=== PATIENT | female | born 1970 | race African-American/Black ===

== ENCOUNTER → 2022-06-12 16:47 | Outpatient (CLI) | payer OTHER, SELFPAY ==
--- NOTE | ~2022-06-12 | MR_ITS ---
EXAMINATION: MR hip LT wo con DATE: 06/12/2022 17:40 INDICATION: Left hip pain TECHNIQUE: Magnetic resonance imaging (MRI) of the left hip was performed without intravenous contra st. Sequences included full-field axial PD-weighted FS FSE and T1-weighted FSE, coronal of the pelvis with PD-weighted FS FSE, T2-weighted FSE and T1-weighted FSE, small field of view of the left hip w ith axial PD-weighted FS FSE, sagittal PD-weighted FS FSE, coronal PD-weighted FS FSE and coronal T2 weighted FSE. Additional radial T1-weighted FGR oriented orthogonal to the acetabular rim were obtai andrei for evaluation of the labrum. COMPARISON: None FINDINGS: Bones/labrum/cartilage: Alignment is normal. T1 and T2 hyperintense hemangioma at L4. No fracture, avascular necrosis or path ologic marrow replacing process. There is cystic change at the left anterosuperior femoral head neck junction which can be seen in the setting of cam-type femoral acetabular impingement although there d oes not appear to be abnormally decreased femoral head neck offset. Mild osteoarthritis at the left h ip with partial thickness cartilage loss with nonuniform joint space narrowing at the posterior and p osterior superolateral aspect of the joint space. Tiny subarticular cystlike change at the 10:30 posi tion of the posterior superior rim of the left acetabulum. Labrum remains normal. Fluid: Symmetric physiologic amount of fluid within both hip joints. Mild increased fluid signal overlying t he left and right greater trochanters consistent with trochanteric bursitis. Soft tissues: Normal and symmetric muscle bulk and signal in the pelvis and visualized proximal thighs. Mild tendin opathy without discrete tear at the distal left gluteus minimus tendon. There is additional mild incr eased fluid signal along the deep margin of the tendon consistent with mild left gluteus minimus burs itis. The iliopsoas, remaining gluteal and proximal hamstring tendons are normal. The uterus is not i dentified and has likely been surgically resected. Limited evaluation of visceral organs of the pelvi s is otherwise unremarkable. No pathologically enlarged pelvic/inguinal lymphadenopathy. IMPRESSION: 1. Mild left hip osteoarthritis. 2. Mild bilateral trochanteric bursitis and mild left gluteus minimus bursitis. Mild tendinopathy wit hout discrete tear of the left gluteus minimus tendon. 3. Cystic change at the anterosuperior left femoral head neck junction which can be seen with femoral acetabular impingement however there is no loss of femoral head neck offset to more specifically sug gest cam-type femoral acetabular impingement. Reviewed, dictated and finalized at location A. IMPRESSION: 1. Mild left hip osteoarthritis. 2. Mild bilateral trochanteric bursitis and mild left gluteus minimus bursitis. Mild tendinopathy without discrete tear of the left gluteus minimus tendon. 3. Cystic change at the anterosuperior left femoral head neck junction which ca n be seen with femoral acetabular impingement however there is no loss of femor al head neck offset to more specifically suggest cam-type femoral acetabular im pingement.
== END ==
PROVIDERS: PCP Orthopaedic Surgery; Visit Provider Orthopaedic Surgery
DX: M16.12 Unilateral primary osteoarthritis, left hip (principal); M70.62 Trochanteric bursitis, left hip
CPT/HCPCS: 73721

== ENCOUNTER 2023-07-17 14:34 | Outpatient (CLI) | payer OTHER, SELFPAY ==
[2023-07-17 15:22] LABS: Anion Gap 7 mmol/L (8-16); Blood Urea Nitrogen 20 mg/dL (7-17); Calcium 9.2 mg/dL (8.4-10.2); Carbon Dioxide 28 mmol/L (22-30); Chloride 103 mmol/L (98-107); Estimated Glomerular Filt Rate > 60; Glucose 93 mg/dL (65-110); Potassium 3.2 mmol/L (3.4-5.0); Sodium 138 mmol/L (137-145)
== END 2023-07-17 14:35 | disposition home or self-care (01) ==
LOC: ANHSURGERY 14:40
PROVIDERS: Anesthesiology; PCP Internal Medicine; Visit Provider Surgery
DX: Z01.812 Encounter for preprocedural laboratory examination (principal); Z79.899 Other long term (current) drug therapy
CPT/HCPCS: 36415; 80048

== ENCOUNTER 2023-07-22 02:22 | Day surgery (SDC) | payer OTHER, SELFPAY ==
[2023-07-09 10:15] VITALS: BMI 29.3
--- NOTE | 2023-07-09 10:19 | PC.NURSE ---
Report to the Outpatient Waiting Room, entrance under the green pavilion located off [facility], at time 10:00 on date 07/22/23. Planned Procedure Time: 12:00. Time changes happen often and if your time is changed the preop area will call you the afternoon before. - You and your visitor will be asked to self-screen and do not enter if you have any COVID symptoms. - A mask is optional within the hospital at this time. Patients may have clear liquids (water, carbonated beverages, clear teas, apple juice) until 3 hours prior to surgery (9:00) with a maximum of 20 ounces. - No food from midnight until time of surgery Take the following medications with a SIP of water the morning of surgery: AMLODIPINE DO NOT STOP ANY OF YOUR OTHER PRESCRIPTION MEDICATIONS PRIOR TO SURGERY ?EXCEPT THE FOLLOWING Medications to discontinue per physician: N/A Date to take last dose: N/A Please no make-up, nail arabic, hairspray, perfume, deodorant, or body powder the day of surgery. No jewelry (including any body piercings) or valuables the day of surgery, leave them at home. Please take a shower or bath the night before, or the morning of, surgery with an antibacterial soap. Wear comfortable, loose fitting clothing. - Jewelry must be removed prior to entering the operating room. Rings and piercings that are not removed may be cut off. - The hospital will not accept responsibility for valuables. - Please leave all valuables, including medications, at home the day of surgery. If you are going home after surgery, a licensed superintendent drivers must drive you home. - NO public transportation without another adult if you receive anesthesia. - We recommend that an adult stay with you for 24 hours following discharge. - We also recommend that you do not drive, make important decision, drink alcoholic beverages, or take any drugs that were not prescribed by your health care provider for at least 24 hours after your discharge time. Follow any additional instructions given to you from your surgeon. If you or anyone in your household have experienced Covid symptoms in the past week, please notify your surgeon or the nurse liaison at the phone number below for possible testing. Telephone instructions given to PT - JULIAN COLLADO and asked if any additional questions and then verbalized understanding. Patient advised to call surgeon office or pre surgery nurse liaison [phone] if any additional questions.
[2023-07-22 09:56] VITALS: BP 128/85; PULSE 62; RESP 18; TEMP 36.3; O2SAT 100
[2023-07-22] MEDS: LACTATED RINGERS 1,000 ML 30 ML IV CONT ×2 (10:30→13:36)
--- NOTE | 2023-07-22 11:42 | P.PNAN_ITS ---
Anes - Initial Pre Proc Eval Procedure: Operation Date: 07/22/23 12:00 Proposed Procedures p Excision of Anal Skin Tag - Keith Man DO Date/Time: 07/22/23 11:42 Surgeon: Keith Man DO Pre Op Diagnosis: residual hemorrhoidal skin tags Patient Data Age: 53 Gender: F Height: 1.71 m Weight: 87.5 kg Last Vital Signs Temp 97.3 F L 07/22/23 09:56 Pulse 62 07/22/23 09:56 Resp 18 07/22/23 09:56 BP 128/85 07/22/23 09:56 Pulse Ox 100 07/22/23 09:56 O2 Del Method Room Air 07/22/23 09:56 Allergies Allergy/AdvReac Type Severity Reaction Status Date / Time No Known Allergies Allergy Unverified 07/22/23 11:19 Home Medications Medication Instructions Recorded Confirmed Type amlodipine 5 mg tablet 5 mg PO DAILY 05/28/23 07/22/23 History atorvastatin 40 mg tablet 40 mg PO QHS 05/28/23 07/22/23 History hydrochlorothiazide 25 mg tablet 25 mg PO DAILY 05/28/23 07/22/23 History Patient hx anesthesia problems: none Family hx anesthesia problems: none Results Review: All pre-operative results and documents have been reviewed as part of the pre- operative evaluation. [facility] Past Medical History Medical History (Updated 06/04/23 @ 15:04 by Jolene Olmstead) Depression High blood pressure Hyperlipidemia Surgical History Surgical History History of carpal tunnel surgery November 2003 History of hysterectomy 2008 Family History Family History Daughter Cerebrovascular accident Other Cancer Hypertension Social History Social History Smoking status: Never smoker Alcohol intake: current Drinks per week: 3 Substance use: never Substance use type: does not use Living arrangements: alone Occupation/Education: occupation Spiritual care concerns: No Anes - Eval Final PreProcedure Day of Procedure 07/22/23 11:42 Patient weight: normal Heart: regular rate and rhythm Lungs: clear to auscultation Airway: Mallampati scale class II Neurological: alert and oriented Last oral intake: >/= 8 hours ASA classification: II Emergent: no Anesthetic plan: proceed Anesthesia type and monitoring: general GIVS and standard monitoring Results Review: All pre-operative results and documents have been reviewed as part of the pre- operative evaluation. Informed Consent: The patient's anesthetic plan and its attendant risks and benefits were discussed with the patient/family/POA. Questions were solicited and answers provided to the satisfaction of the patient/family/POA.
--- NOTE | 2023-07-22 11:53 | WPDHPUPDATE1 ---
History and Physical Update Update Date/Time: 07/22/23 11:53 History and Physical has been reviewed, including an updated exam of the patient. There are NO changes in the patient's condition. Risks, benefits, and alternatives have been discussed and questions answered. Patient agrees to proceed with procedure.
--- NOTE | 2023-07-22 11:53 | PM.IMHP ---
H&P: HPI History of Present Illness Date/Time: 07/22/23 11:53 Chief Complaint: Anal skin tag Narrative: 53 yo woman presents for excision of anal skin tag. She reports no changes since last seen in office. Review of Systems Review of Systems: All systems reviewed & are unremarkable except as noted in HPI and below Constitutional: Constitutional: Denies chills, Denies fever(s), Denies headache(s) and Denies weight loss Eyes: Eyes: Denies change in vision ENT: Denies dizziness, Denies headache(s), Denies neck mass and Denies throat swelling Cardiovascular: Cardiovascular: Denies chest pain, Denies lightheadedness and Denies dyspnea Respiratory: Respiratory: Denies cough, Denies dyspnea and Denies wheezing Gastrointestinal: Gastrointestinal: Denies abdominal pain, Denies change in bowel habits, Denies nausea and Denies vomiting Genitourinary: Genitourinary: Denies hematuria and Denies dysuria Musculoskeletal: Musculoskeletal: Reports as per HPI Integumentary/Breasts: Skin/Breast: Reports as per HPI Neurologic: Denies dizziness and Denies headache(s) Allergic/Immunologic: Allergic/Immunologic: Denies throat swelling and Denies wheezing [facility] Past Medical History Medical History (Updated 06/04/23 @ 15:04 by Jolene Olmstead) Depression High blood pressure Hyperlipidemia Surgical History Surgical History History of carpal tunnel surgery November 2003 History of hysterectomy 2008 Family History Family History Daughter Cerebrovascular accident Other Cancer Hypertension Social History Social History Smoking status: Never smoker Alcohol intake: current Drinks per week: 3 Substance use: never Substance use type: does not use Living arrangements: alone Occupation/Education: occupation Spiritual care concerns: No Meds Home Medications and Allergies Home Medications Medication Instructions Recorded Confirmed Type amlodipine 5 mg tablet 5 mg PO DAILY 05/28/23 07/22/23 History atorvastatin 40 mg tablet 40 mg PO QHS 05/28/23 07/22/23 History hydrochlorothiazide 25 mg tablet 25 mg PO DAILY 05/28/23 07/22/23 History Allergies Allergy/AdvReac Type Severity Reaction Status Date / Time No Known Allergies Allergy Unverified 07/22/23 11:19 Vital Signs Vital Signs - 24 hr 07/22/23 09:56 Temperature 36.3 C L Pulse Rate 62 Respiratory Rate 18 Blood Pressure 128/85 Pulse Oximetry 100 Oxygen Delivery Room Air Exam Const: General: no acute distress and alert Orientation/consciousness: patient oriented x3 HENMT: Head: normocephalic and atraumatic Ears: hearing grossly normal bilaterally Face/Nose/Sinus: Normal nares present Mouth: Yes Normal oral and palatal mucosa present Eyes: Periorbital: periorbital findings normal Sclera: sclerae normal EOM: EOMs intact bilaterally Neck: Neck: normal visual inspection, no lymphadenopathy and trachea midline Chest: Chest palpation & inspection: normal inspection of the chest Resp: Effort & Inspection: normal respiratory effort Auscultation: clear to auscultation bilaterally Cardio: Jugular venous distension: no JVD Rate: regular rate Rhythm: regular rhythm Heart sounds: S1 normal heart sound present and S2 normal heart sound present Peripheral pulses: Peripheral pulses 2+ throughout GI: Inspection: normal to inspection GI Palp: Yes Soft to palpation, No Tenderness to palpation present (GI), No Guarding due to palpation present (GI) and No Rebound tenderness present Percussion: Yes normal to percussion Auscultation: normal bowel sounds Other: Anterior midline anal skin tag : General: Yes no CVA tenderness Back/Spine/Pelvis: Back: no CVA tenderness Neuro: General: patient oriented x3, no focal motor deficits and CN's II-XI intact christina
[2023-07-22] MEDS: ceFAZolin 2 GM/D5W 50 ML 2 GM/50 ML BAG IVPB (12:08)
[2023-07-22] MEDS: LIDO 1%/EPINEPHRINE 1:100,000 50 ML VIAL 30 ML INFILTRATE (12:22)
--- NOTE | 2023-07-22 12:47 | W.PM.PROC2 ---
Procedure Note - Detailed Date of Procedure 07/22/23 Pre-op Diagnosis residual hemorrhoidal skin tags Post-op Diagnosis Same Procedure Performed Rectal exam under anesthesia with excision of anterior midline residual hemorrhoid skin tag Surgeon Keith Man, DO Anesthesia MAC and Local (1% lidocaine with epinephrine) Indications This is a 53-year-old woman who presented with an anal skin tag that was causing her irritation and discomfort. She denied any rectal bleeding and denied any problems with internal hemorrhoids. She did not have any evidence of thrombosed external hemorrhoid on exam. She did have a large anterior midline anal skin tag that was causing her discomfort. Discussions were made with the patient about treatment options and decision was made to proceed with rectal exam under anesthesia with excision of anal skin tag. Findings Rectal exam under anesthesia was performed. Patient was found to have an anterior midline anal skin tag measuring about 2 cm. This was a excised with an elliptical incision. No other rectal pathology was identified. The specimen was sent to the lab for pathology. Description of Procedure Procedure as well as risks, benefits, and alternatives were discussed with the patient. Written consent was obtained and placed in chart prior to procedure. Patient was brought back to surgical suite. She was placed supine on operating table. Time-out was done to confirm patient and procedure. She was then repositioned into dorsal lithotomy position in stirru. IV sedation was then administered by the anesthesia department. Her perirectal region was prepped and draped in sterile fashion using Betadine prep. Digital rectal exam was initially performed. A Hill-Rodriguez anoscope was then inserted in the anorectal canal was carefully inspected. 1% lidocaine with epinephrine was infiltrated locally around the anterior midline residual hemorrhoid skin tag. An elliptical incision was then made around the skin tag using a 15 blade scalpel. The skin tag was completely excised using the 15 blade scalpel. Electrocautery was then used for hemostasis. The anoderm and anal mucosa was then reapproximated using 3-0 chromic simple interrupted sutures. The area was irrigated with sterile saline. No other significant abnormalities were noted. One final inspection was made using the Hill-Rodriguez anoscope and then the anoscope was then removed. A Gelfoam roll was placed within the anal canal. 4 x 4 gauze, ABD pad, and mesh underwear were then applied. Patient was then awakened from anesthesia and transferred to recovery. Estimated Blood Loss 20 Packing Yes (Gelfoam roll) Pathology Yes (Anal skin tag) Complications No immediate complications Condition Stable Disposition Same day [facility] Billing Surgery - Charge Forward: Surgery Billing
[2023-07-22 12:48] VITALS: BP 130/75; PULSE 92; RESP 14; O2SAT 100
[2023-07-22 13:15] VITALS: BP 119/67; PULSE 57
[2023-07-22 13:45] VITALS: BP 132/74; PULSE 53
[2023-07-22] MEDS: fentaNYL CITRATE INJ (*CRX) 100 MCG/2 ML VIAL 25 MCG IV PUSH ×2 (13:55→13:58)
[2023-07-22] MEDS: oxyCODONE HCL (*CRX) 5 MG TAB IR PO (14:11)
[2023-07-22 14:15] VITALS: BP 112/58; PULSE 52; RESP 14
[2023-07-22] MEDS: ONDANSETRON INJ 4 MG/2 ML VIAL IV PUSH (14:44)
[2023-07-22 14:45] VITALS: BP 115/71; PULSE 70; RESP 14
== END 2023-07-22 15:00 | disposition home or self-care (01) ==
PROVIDERS: PCP Internal Medicine; Visit Provider Surgery
PROC: (CPT 46220; principal; 2023-07-22 12:00)
DX: K64.4 Residual hemorrhoidal skin tags (principal); F32.A Depression, unspecified; I10 Essential (primary) hypertension; E78.5 Hyperlipidemia, unspecified
CPT/HCPCS: 46220; 36415; 80048; 88305; A9270; J0690; J2250; J2405; J2704; J3010; J7120

== ENCOUNTER 2023-10-03 11:26 | Outpatient (CLI) | payer OTHER, SELFPAY ==
[2023-10-03 14:10] LABS: Anion Gap 7 mmol/L (8-16); Blood Urea Nitrogen 10 mg/dL (7-17); Calcium 9.1 mg/dL (8.4-10.2); Carbon Dioxide 29 mmol/L (22-30); Chloride 101 mmol/L (98-107); Estimated Glomerular Filt Rate > 60; Glucose 80 mg/dL (65-110); Potassium 3.1 mmol/L (3.4-5.0); Sodium 137 mmol/L (137-145)
== END 2023-10-03 11:27 | disposition home or self-care (01) ==
PROVIDERS: Anesthesiology; PCP Internal Medicine; Visit Provider Plastic Surgery
DX: I10 Essential (primary) hypertension (principal); Z01.818 Encounter for other preprocedural examination
CPT/HCPCS: 36415; 80048

== ENCOUNTER 2023-10-09 01:15 | Day surgery (SDC) | payer OTHER, SELFPAY ==
[2023-09-27 14:19] VITALS: BMI 30.8
--- NOTE | 2023-09-27 14:28 | PC.NURSE ---
Report to the Outpatient Waiting Room, entrance under the green pavilion located off [facility], at 0730 on 10/09/23. Planned Procedure Time: 0930. Time changes happen often and if your time is changed the preop area will call you the afternoon before. - You and your visitor will be asked to self-screen and do not enter if you have any COVID symptoms. - A mask is optional within the hospital at this time. Patients may have clear liquids (water, carbonated beverages, clear teas, apple juice) until 3 hours prior to surgery with a maximum of 20 ounces. - No food from midnight until time of surgery. Take the following medications with a SIP of water the morning of surgery: Amlodipine May also take Endocet if needed. DO NOT STOP ANY OF YOUR OTHER PRESCRIPTION MEDICATIONS PRIOR TO SURGERY ?EXCEPT THE FOLLOWING Medications to discontinue per physician N/A Date to take last dose N/A Please no make-up, nail citizen of [place], hairspray, perfume, deodorant, or body powder the day of surgery. No jewelry (including any body piercings) or valuables the day of surgery, leave them at home. Please take a shower or bath the night before, or the morning of, surgery with an antibacterial soap. Wear comfortable, loose fitting clothing. - Jewelry must be removed prior to entering the operating room. Rings and piercings that are not removed may be cut off. - The hospital will not accept responsibility for valuables. - Please leave all valuables, including medications, at home the day of surgery. If you are going home after surgery, a licensed transportation driver must drive you home. - NO public transportation without another adult if you receive anesthesia. - We recommend that an adult stay with you for 24 hours following discharge. - We also recommend that you do not drive, make important decision, drink alcoholic beverages, or take any drugs that were not prescribed by your health care provider for at least 24 hours after your discharge time. Follow any additional instructions given to you from your surgeon. If you or anyone in your household have experienced Covid symptoms in the past week, please notify your surgeon or the nurse liaison at the phone number below for possible testing. Telephone instructions given to patient and asked if any additional questions and then verbalized understanding. Patient advised to call surgeon office or pre surgery nurse liaison [phone] if any additional questions.
[2023-10-09] VITALS (8 sets, daily range): BP systolic 123–134; BP diastolic 76–93; PULSE 52–80; RESP 12–18; TEMP 36.2–37.3; O2SAT 98–100
[2023-10-09] MEDS: LACTATED RINGERS 1,000 ML 30 ML IV CONT (08:14)
--- NOTE | 2023-10-09 08:33 | WPDANESEPPF ---
Anes - Initial Pre Proc Eval Procedure: Operation Date: 10/09/23 09:30 Proposed Procedures p Excision of Subcutaneous Mass Left Flank - Jr Rachel MD Date/Time: 10/09/23 08:33 Surgeon: Jr Rachel MD Pre Op Diagnosis: Subcutaneous Mass Left Flank Patient Data Age: 53 Gender: F Height: 1.71 m Weight: 86.5 kg Last Vital Signs Temp 37.3 C 10/09/23 07:29 Pulse 67 10/09/23 07:29 Resp 18 10/09/23 07:29 BP 125/88 10/09/23 07:29 Pulse Ox 98 10/09/23 07:29 O2 Del Method Room Air 10/09/23 07:29 Allergies Allergy/AdvReac Type Severity Reaction Status Date / Time No Known Allergies Allergy Verified 10/09/23 07:36 Home Medications Medication Instructions Recorded Confirmed Type amlodipine 5 mg tablet 5 mg PO DAILY 05/28/23 09/27/23 History atorvastatin 40 mg tablet 40 mg PO QHS 05/28/23 09/27/23 History hydrochlorothiazide 25 mg tablet 25 mg PO DAILY 05/28/23 09/27/23 History oxycodone-acetaminophen 5 mg-325 0.5 - 1 tablet PO Q4H PRN pain #10 08/08/23 09/27/23 Rx mg tablet (Endocet) tabs valacyclovir 1 gram tablet 1,000 mg PO DAILY 09/27/23 09/27/23 History Patient hx anesthesia problems: none Family hx anesthesia problems: none Results Review: All pre-operative results and documents have been reviewed as part of the pre-operative evaluation. [facility] Past Medical History Medical History Depression High blood pressure Hyperlipidemia Surgical History Surgical History H/O excision of mass Rectal exam under anesthesia with excision of anterior midline residual hemorrhoid skin tag on 07/22/23 [facility] History of carpal tunnel surgery November 2003 History of hysterectomy 2008 Family History Family History Daughter Cerebrovascular accident Other Cancer Hypertension Social History Social History Smoking status: Never smoker Second hand tobacco smoke exposure: No Alcohol intake: current Drinks per week: 2 Substance use: never Substance use type: does not use Living arrangements: alone Occupation/Education: occupation Spiritual care concerns: No Anes - Eval Final PreProcedure Day of Procedure 10/09/23 08:33 Patient weight: overweight Heart: regular rate and rhythm Lungs: clear to auscultation Airway: Mallampati scale class II Neurological: alert and oriented Last oral intake: >/= 8 hours ASA classification: II Emergent: no Anesthetic plan: proceed Anesthesia type and monitoring: general LMA and standard monitoring Results Review: All pre-operative results and documents have been reviewed as part of the pre-operative evaluation. Informed Consent: The patient's anesthetic plan and its attendant risks and benefits were discussed with the patient/family/POA. Questions were solicited and answers provided to the satisfaction of the patient/family/POA.
--- NOTE | 2023-10-09 08:37 | WPDHPUPDATE1 ---
History and Physical Update Update Date/Time: 10/09/23 08:37 History and Physical has been reviewed, including an updated exam of the patient. There are NO changes in the patient's condition. Risks, benefits, and alternatives have been discussed and questions answered. Patient agrees to proceed with procedure.
[2023-10-09] MEDS: LIDO 1%/EPINEPHRINE 1:100,000 50 ML VIAL 20 ML INFILTRATE (09:24)
--- NOTE | 2023-10-09 10:04 | W.PM.PROC2 ---
Procedure Note - Detailed Date of Procedure 10/09/23 Pre-op Diagnosis Subcutaneous Mass Left Flank Post-op Diagnosis Other (Lipoma 10 x 7 x 2 cm) Procedure Performed 5 cm excision of 10 x 7 cm lipoma with intermediate repair 5 cm Surgeon Jr Rachel MD Anesthesia MAC Description of Procedure The subcutaneous mass was identified on her left flank and marked her consent. She showed me on her cellphone phone a picture of herself indicating she said the mass. The picture however represented the right side. I did palpate the right side and we found nothing. I suspect the photo was taken from a mirror image. She was then taken to the operating room placed supine on the operating table. Anesthesia and operating room staff position her with support under the left flank allowing easy access to the site. The area was widely prepped and draped. Site was marked again for the incision and locally infiltrated with 1% lidocaine with epinephrine. About 10 milliliter was used for the incision and a around the margins of the mass. The incision was made without significant bleeding. The superficial fascia was opened and the yellow mass was identified just beneath that. A pair of small Adame retractors were inserted. The dissection was carried out mostly was digital blunt dissection. Cautery was used as needed. There was no significant bleeding the mass once removed was measured at 10 x 7 by proximally 2 cm and was a single lobule. We examined the cavity well and no additional lipoma noted. The site was irrigated and the wound closed. Closure involved 3-0 Vicryl sutures in superficial fascia. A running 4-0 Monocryl suture intradermal fashion was placed for skin closure. The wound was dressed with Xeroform gauze and a Tegaderm. The discharge instructions in wound care and follow-up she has a prescription for hydrocodone 5/325 number 5 Estimated Blood Loss 2 Drains No Packing No Pathology None sent Complications No immediate complications Condition Stable Disposition Same day
[2023-10-09] MEDS: ONDANSETRON INJ 4 MG/2 ML VIAL IV PUSH (11:20)
--- NOTE | 2023-10-09 11:44 | SUR.PHASEII ---
Patient dressed and waiting for ride. Vital signs stable. IV removed.
== END 2023-10-09 12:13 | disposition home or self-care (01) ==
PROVIDERS: PCP Internal Medicine; Visit Provider Plastic Surgery
PROC: (CPT 22903; principal; 2023-10-09 09:30)
DX: D17.1 Benign lipomatous neoplasm of skin and subcutaneous tissue of trunk (principal); E78.5 Hyperlipidemia, unspecified; I10 Essential (primary) hypertension
CPT/HCPCS: 22903; 36415; 80048; 88304; A9270; J1100; J2250; J2405; J2704; J7120

== ENCOUNTER 2024-09-04 10:49 | Outpatient (CLI) | payer OTHER, SELFPAY ==
--- NOTE | ~2024-09-04 | MR_ITS ---
MRI of the left knee Clinical history: Pain Technique: Coronal proton density and proton density-weighted images, sagittal proton-density and T2 fat-sat images, and axial proton-density fat-saturated images were acquired. Findings: Anterior and posterior cruciate ligaments are intact. Medial collateral ligament and the la teral collateral ligament complex are intact. There is soft tissue edema about the MCL. Popliteus ten don is intact. There is radial tear at the posterior root of the medial meniscus. No lateral meniscal tear evident. There is probable subchondral insufficiency fracture at the medial femoral condyle with extensive tay rphous or marrow edema. There is focal mild chondromalacia at the medial patellar facet. There is mil d chondral malacia the central aspect of the femoral trochlea. There is diffuse high-grade chondromal acia the medial femoral condyle and medial tibial plateau. There is mild chondral lesion of the later al compartment. Small tricompartmental osteophytes are present. Extensor mechanism is intact. Moderate joint effusion present. Minimal Hernandez's cyst. Impression: Radial tear at the posterior root of the medial meniscus. Probable underlying subchondral insufficiency fracture at the medial femoral condyle with extensive s urrounding amorphous marrow edema. 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 Additional degenerative changes of the lateral and patellofemoral compartments, as above. Moderate joint effusion with minimal Hernandez's cyst. Reviewed, dictated and finalized at location . [employer] Impression: Radial tear at the posterior root of the medial meniscus. Probable underlying subchondral insufficiency fracture at the medial femoral co ndyle with extensive surrounding amorphous marrow edema. 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 Additional degen erative changes of the lateral and patellofemoral compartments, as above. Moderate joint effusion with minimal Hernandez's cyst.
== END 2024-09-04 10:50 | disposition home or self-care (01) ==
LOC: MICIMG 10:50
PROVIDERS: PCP Orthopaedic Surgery; Visit Provider Orthopaedic Surgery
DX: S83.242A Other tear of medial meniscus, current injury, left knee, initial encounter (principal); X58.XXXA Exposure to other specified factors, initial encounter; M25.462 Effusion, left knee
CPT/HCPCS: 73721